=== PATIENT | female | born 1995 | race Native Hawaiian/Other Pacific Islander ===

== ENCOUNTER 2018-09-18 09:02 | Emergency (ER) | payer MEDICAID ==
[2018-09-18 09:09] VITALS: BP 110/78
[2018-09-18 09:26] LABS: Basophils % (Auto) 0.3 % (0.0-1.8); Eosinophils # (Auto) 0.1 K/mm3 (0.0-0.4); Eosinophils % (Auto) 1.1 % (0.0-4.3); Hematocrit 37.6 % (30.3-42.9); Hemoglobin 13.1 gm/dl (10.1-14.3); Lymphocytes # (Auto) 0.9 K/mm3 (1.2-5.4); Lymphocytes % (Auto) 17.7 % (13.4-35.0); Mean Corpuscular HGB Conc 35 % (30-34); Mean Corpuscular Volume 87 fl (79-97); Monocytes # (Auto) 0.4 K/mm3 (0.0-0.8); Monocytes % (Auto) 7.1 % (0.0-7.3); Platelet Count 185 K/mm3 (140-440); Red Cell Distribution Width 13.6 % (13.2-15.2)
[2018-09-18 09:47] LABS: Alanine Aminotransferase 60 units/L (7-56); Albumin 4.3 g/dL (3.9-5); BUN/Creatinine Ratio 20; Blood Urea Nitrogen 12 mg/dL (7-17); Calcium 8.9 mg/dL (8.4-10.2); Hemolysis Index 8
[2018-09-18 09:51] LABS: Bilirubin,Urine NEG (Negative); Blood,Urine MOD (Negative); Color,Urine Straw (Yellow); Urobilinogen,Urine < 2.0 mg/dL (<2.0)
--- NOTE | 2018-09-18 10:16 | Emergency Department Report ---
ED Abdominal Pain HPI - General Chief Complaint: Abdominal Pain Stated Complaint: ABD PAIN/1WK Time Seen by Provider: 09/18/18 09:51 Source: patient Mode of arrival: Ambulatory Limitations: No Limitations - History of Present Illness Initial Comments: This is a 23-year-old female presents ED complaining of upper abdominal pain with some nausea and vomiting intermittently for the past 4 months. Patient states that she had an appointment with the primary care physician who stated she needed a CT scan but has not been able to give her an appointment. Patient states nausea is intermittent. Patient states she is still able to eat and drink fluids without any problems. Patient denies any radiation of pain. She states it's localized to the upper mid abdominal region. MD Complaint: abdominal pain Severity scale (0 -10): 7 - Related Data Previous Rx's Medication Instructions Recorded Last Taken Type Famotidine [Pepcid] 40 mg PO QHS #30 tablet 09/18/18 Unknown Rx Ondansetron [Zofran Odt] 4 mg PO Q8HR #30 tab.rapdis 09/18/18 Unknown Rx Allergies Allergy/AdvReac Type Severity Reaction Status Date / Time No Known Allergies Allergy Verified 09/18/18 09:09 ED Review of Systems ROS: Stated complaint: ABD PAIN/1WK Other details as noted in HPI Comment: All other systems reviewed and negative ED Past Medical Hx - Past Medical History Previous Medical History?: No - Surgical History Past Surgical History?: Yes Additional Surgical History: gallstone removal - Social History Smoking Status: Never Smoker - Medications Home Medications: Home Medications Medication Instructions Recorded Confirmed Last Taken Type Famotidine [Pepcid] 40 mg PO QHS #30 tablet 09/18/18 Unknown Rx Ondansetron [Zofran Odt] 4 mg PO Q8HR #30 tab.rapdis 09/18/18 Unknown Rx ED Physical Exam - General Limitations: No Limitations General appearance: alert, in no apparent distress - Head Head exam: Present: atraumatic, normocephalic - Eye Eye exam: Present: normal appearance - ENT ENT exam: Present: mucous membranes moist - Neck Neck exam: Present: normal inspection - Respiratory Respiratory exam: Present: normal lung sounds bilaterally. Absent: respiratory distress - Cardiovascular Cardiovascular Exam: Present: regular rate, normal rhythm. Absent: systolic murmur, diastolic murmur, rubs, gallop - GI/Abdominal GI/Abdominal exam: Present: soft, normal bowel sounds. Absent: distended, tenderness, guarding, mass, pulsatile mass - Expanded GI/Abdominal Exam Expanded GI/Abdominal exam: Absent: psoas sign, obturator sign - Extremities Exam Extremities exam: Present: normal inspection - Back Exam Back exam: Present: normal inspection, full ROM, muscle spasm. Absent: CVA tenderness (R), CVA tenderness (L) - Neurological Exam Neurological exam: Present: alert, oriented X3, normal gait - Psychiatric Psychiatric exam: Present: normal affect, normal mood - Skin Skin exam: Present: warm, dry, intact, normal color. Absent: rash ED Course Vital Signs 09/18/18 09:07 Temperature 98.4 F Pulse Rate 990 H Respiratory 16 Rate Blood Pressure 110/78 O2 Sat by Pulse 98 Oximetry ED Medical Decision Making - Lab Data Result diagrams: 09/18/18 09:15 09/18/18 09:15 Laboratory Last Values WBC 5.0 K/mm3 (4.5-11.0) 09/18/18 09:15 RBC 4.30 M/mm3 (3.65-5.03) 09/18/18 09:15 Hgb 13.1 gm/dl (10.1-14.3) 09/18/18 09:15 Hct 37.6 % (30.3-42.9) 09/18/18 09:15 MCV 87 fl (79-97) 09/18/18 09:15 MCH 30 pg (28-32) 09/18/18 09:15 MCHC 35 % (30-34) H 09/18/18 09:15 RDW 13.6 % (13.2-15.2) 09/18/18 09:15 Plt Count 185 K/mm3 (140-440) 09/18/18 09:15 Lymph % (Auto) 17.7 % (13.4-35.0) 09/18/18 09:15 [place] % (Auto) 7.1 % (0.0-7.3) 09/18/18 09:15 Eos % (Auto) 1.1 % (0.0-4.3) 09/18/18 09:15 Baso % (Auto) 0.3 % (0.0-1.8) 09/18/18 09:15 Lymph # 0.9 K/mm3 (1.2-5.4) L 09/18/18 09:15 [place] # 0.4 K/mm3 (0.0-0.8) 09/18/18 09:15 Eos # 0.1 K/mm3 (0.0-0.4) 09/18/18 09:15 Baso # 0.0 K/mm3 (0.0-0.1) 09/18/18 09:15 Seg Neutrophils % 73.8 % (40.0-70.0) H 09/18/18 09:15 Seg Neutrophils # 3.7 K/mm3 (1.8-7.7) 09/18/18 09:15 Sodium 141 mmol/L (137-145) 09/18/18 09:15 Potassium 3.8 mmol/L (3.6-5.0) 09/18/18 09:15 Chloride 107.2 mmol/L (98-107) H 09/18/18 09:15 Carbon Dioxide 21 mmol/L (22-30) L 09/18/18 09:15 Anion Gap 17 mmol/L 09/18/18 09:15 BUN 12 mg/dL (7-17) 09/18/18 09:15 Creatinine 0.6 mg/dL (0.7-1.2) L 09/18/18 09:15 Estimated GFR > 60 ml/min 09/18/18 09:15 BUN/Creatinine Ratio 20 % 09/18/18 09:15 Glucose 105 mg/dL (65-100) H 09/18/18 09:15 Calcium 8.9 mg/dL (8.4-10.2) 09/18/18 09:15 Total Bilirubin 0.30 mg/dL (0.1-1.2) 09/18/18 09:15 AST 34 units/L (5-40) 09/18/18 09:15 ALT 60 units/L (7-56) H 09/18/18 09:15 Alkaline Phosphatase 91 units/L (35-129) 09/18/18 09:15 Total Protein 7.4 g/dL (6.3-8.2) 09/18/18 09:15 Albumin 4.3 g/dL (3.9-5) 09/18/18 09:15 Albumin/Globulin Ratio 1.4 % 09/18/18 09:15 HCG, Qual Negative (Negative) 09/18/18 09:15 Urine Color Straw (Yellow) 09/18/18 09:39 Urine Turbidity Clear (Clear) 09/18/18 09:39 Urine pH 6.0 (5.0-7.0) 09/18/18 09:39 Ur Specific [place] 1.005 (1.003-1.030) 09/18/18 09:39 Urine Protein 100 mg/dl mg/dL (Negative) 09/18/18 09:39 Urine Glucose (UA) Neg mg/dL (Negative) 09/18/18 09:39 Urine Ketones Neg mg/dL (Negative) 09/18/18 09:39 Urine Blood Mod (Negative) 09/18/18 09:39 Urine Nitrite Neg (Negative) 09/18/18 09:39 Urine Bilirubin Neg (Negative) 09/18/18 09:39 Urine Urobilinogen < 2.0 mg/dL (<2.0) 09/18/18 09:39 Ur Leukocyte Esterase Neg (Negative) 09/18/18 09:39 Urine WBC (Auto) 2.0 /HPF (0.0-6.0) 09/18/18 09:39 Urine RBC (Auto) 2.0 /HPF (0.0-6.0) 09/18/18 09:39 U Epithel Cells (Auto) < 1.0 /HPF (0-13.0) 09/18/18 09:39 - Radiology Data Radiology results: report reviewed, image reviewed No acute findings - Medical Decision Making 23-year-old female presents with abdominal pain 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 Discussed with patient CT scan is negative and shows no findings. His constipation to severe case of GERD. Vital signs normal she is in no acute distress there was no active vomiting in the ED. Critical care attestation.: If time is entered above; I have spent that time in minutes in the direct care of this critically ill patient, excluding procedure time. ED Disposition Clinical Impression: Abdominal pain Disposition: DC-01 TO HOME OR SELFCARE Is pt being admited?: No Does the pt Need Aspirin: No Condition: Stable Instructions: Abdominal Pain (ED), Gastroesophageal Reflux Disease (ED), Diet for Ulcers and Gastritis (ED) Additional Instructions: Make sure to follow up with the primary care physician as discussed. Take all your medications as you've been prescribed. If you have any worsening symptoms or develop new symptoms please return to ED immediately. Prescriptions: Famotidine [Pepcid] 40 mg PO QHS #30 tablet Ondansetron [Zofran Odt] 4 mg PO Q8HR #30 tab.rapdis Referrals: [facility] [Other] - 3-5 Days Forms: Accompanied Note, Work/School Release Form(ED) Time of Disposition: 12:40
--- NOTE | 2018-09-18 11:42 | Cat Scan Report ---
CT abdomen and pelvis without contrast: Upper abdominal pain. Transverse images are obtained from lower chest to the ischium with coronal and sagittal 2-D reformatted images. The visualized lung bases are clear. There is no gallbladder identified. The abdominal and retroperitoneal organs are otherwise unremarkable. The unopacified bowel and mesentery appear normal. The appendix is not identified. No evidence of inflammatory changes are noted. No free fluid and no abdominal mass. There is a fat containing small umbilical hernia. Images of the pelvis demonstrate reproductive organs with no mass and no free fluid. The bony structures are unremarkable. Impression: No pathology identified.
== END 2018-09-18 13:03 | disposition home or self-care (01) ==
LOC: ED 09:02
DX: R10.10 Upper abdominal pain, unspecified (principal); R11.2 Nausea with vomiting, unspecified
CPT/HCPCS: 36415; 74176; 80053; 81001; 84703; 85025

== ENCOUNTER 2020-11-17 00:14 | Emergency (ER) | payer MEDICAID ==
--- NOTE | 2020-11-17 01:52 | XRay Report ---
CHEST 2 VIEWS INDICATION / CLINICAL INFORMATION: Chest pain, SOB. COMPARISON: None available. FINDINGS: SUPPORT DEVICES: None. HEART / MEDIASTINUM: No significant abnormality. LUNGS / PLEURA: No significant pulmonary or pleural abnormality. No pneumothorax. ADDITIONAL FINDINGS: No significant additional findings. IMPRESSION: 1. No acute findings. Signer Name: Lila Berkowitz MD Signed: 11/17/2020 1:47 AM Workstation Name: [id number]
[2020-11-17 02:19] LABS: Basophils % (Auto) 0.4 % (0.0-1.8); Eosinophils # (Auto) 0.2 K/mm3 (0.0-0.4); Eosinophils % (Auto) 4.3 % (0.0-4.3); Hematocrit 31.4 % (30.3-42.9); Hemoglobin 10.5 gm/dl (10.1-14.3); Lymphocytes # (Auto) 2.1 K/mm3 (1.2-5.4); Lymphocytes % (Auto) 36.9 % (13.4-35.0); Mean Corpuscular HGB Conc 34 % (30-34); Mean Corpuscular Volume 77 fl (79-97); Monocytes # (Auto) 0.4 K/mm3 (0.0-0.8); Monocytes % (Auto) 6.4 % (0.0-7.3); Platelet Count 209 K/mm3 (140-440); Red Blood Count 4.09 M/mm3 (3.65-5.03)
[2020-11-17 02:38] LABS: Alanine Aminotransferase 14 units/L (7-56); Albumin 4.5 g/dL (3.9-5); Blood Urea Nitrogen 13 mg/dL (7-17); Calcium 9.2 mg/dL (8.4-10.2); Hemolysis Index 1
[2020-11-17 02:39] LABS: BUN/Creatinine Ratio 26
[2020-11-17] MEDS ORDERED: LIDOCAINE VISCOUS 2% 15 ML ORAL LIQD PO ONE (03:56)
[2020-11-17] MEDS ORDERED: ALUM-MAG HYDROXIDE-SIMETHICONE 200-200-20MG/5ML ORAL LIQD 30 ML PO ONE (03:56)
--- NOTE | 2020-11-17 03:59 | Emergency Department Report ---
ED General Adult HPI - General Chief complaint: Chest Pain Stated complaint: CHEST PAIN, MIGRAINE Time Seen by Provider: 11/17/20 03:46 Source: patient Mode of arrival: Ambulatory Limitations: No Limitations - History of Present Illness Initial comments: 25-year-old female, no past medical history, presents to ED with complaint of headache, chest pain, abdominal pain x1 week. Patient reports substernal sharp chest pain, intermittent. She denies any aggravating or alleviating factors. She denies any shortness of breath, cough, fever, leg pain or swelling. Patient states she has also been having some epigastric abdominal pain with associated nausea. She denies any vomiting or diarrhea. Patient also reports associated migraine headache. Patient states she has not been taking anything at home for the pain. Patient states she was seen in urgent care for the same complaint and was given a prescription for nausea medicine. -: week(s) (1) Location: head, chest, abdomen Severity scale (0 -10): 8 Quality: sharp Consistency: intermittent Improves with: none Worsens with: cold therapy Associated Symptoms: headaches, nausea/vomiting. denies: cough, fever/chills, shortness of breath - Related Data Previous Rx's Medication Instructions Recorded Last Taken Type Famotidine [Pepcid] 40 mg PO QHS #30 tablet 09/18/18 Unknown Rx Ondansetron [Zofran Odt] 4 mg PO Q8HR #30 tab.rapdis 09/18/18 Unknown Rx Dicyclomine [Bentyl] 20 mg PO QID PRN #20 tablet 11/17/20 Unknown Rx traMADoL [Ultram] 50 mg PO Q6HR PRN #7 tablet 11/17/20 Unknown Rx Allergies Allergy/AdvReac Type Severity Reaction Status Date / Time No Known Allergies Allergy Verified 09/18/18 09:09 ED Review of Systems ROS: Stated complaint: CHEST PAIN, MIGRAINE Other details as noted in HPI Comment: All other systems reviewed and negative Constitutional: denies: chills Respiratory: denies: cough, shortness of breath Cardiovascular: chest pain Gastrointestinal: abdominal pain, nausea. denies: vomiting, diarrhea Musculoskeletal: other (Denies leg pain or swelling) Neurological: headache ED Past Medical Hx - Past Medical History Previous Medical History?: Yes Hx Headaches / Migraines: Yes - Surgical History Past Surgical History?: Yes Additional Surgical History: gallstone removal - Social History Smoking Status: Never Smoker Substance Use Type: None - Medications Home Medications: Home Medications Medication Instructions Recorded Confirmed Last Taken Type Famotidine [Pepcid] 40 mg PO QHS #30 tablet 09/18/18 Unknown Rx Ondansetron [Zofran Odt] 4 mg PO Q8HR #30 tab.rapdis 09/18/18 Unknown Rx Dicyclomine [Bentyl] 20 mg PO QID PRN #20 tablet 11/17/20 Unknown Rx traMADoL [Ultram] 50 mg PO Q6HR PRN #7 tablet 11/17/20 Unknown Rx ED Physical Exam - General Limitations: No Limitations General appearance: alert, in no apparent distress - Head Head exam: Present: atraumatic, normocephalic - Eye Eye exam: Present: normal appearance, EOMI - ENT ENT exam: Present: mucous membranes moist - Neck Neck exam: Present: normal inspection - Respiratory Respiratory exam: Present: normal lung sounds bilaterally, chest wall tenderness. Absent: respiratory distress - Cardiovascular Cardiovascular Exam: Present: regular rate, normal rhythm - GI/Abdominal GI/Abdominal exam: Present: soft, tenderness (epigastric tenderness). Absent: distended - Extremities Exam Extremities exam: Present: normal inspection - Neurological Exam Neurological exam: Present: alert, oriented X3 - Psychiatric Psychiatric exam: Present: normal affect, normal mood - Skin Skin exam: Present: warm, dry, intact, normal color ED Course Vital Signs 11/17/20 11/17/20 01:07 04:08 Temperature 98.9 F Pulse Rate 74 Respiratory 16 16 Rate Blood Pressure 123/83 [Right] O2 Sat by Pulse 99 Oximetry ED Medical Decision Making - Lab Data Result diagrams: 11/17/20 01:48 11/17/20 01:48 - EKG Data -: EKG Interpreted by Ar EKG shows normal: sinus rhythm, axis, intervals, QRS complexes, ST-T waves Rate: normal - EKG Data Interpretation: no acute changes - Radiology Data Radiology results: report reviewed, image reviewed - Medical Decision Making 25-year-old female presents to ED with 1 week history of headache, chest pain, abdominal pain. Vital signs are normal and stable. EKG is normal, no ST changes present. Troponin is negative x2. Chest x-ray is normal. Patient is in no respiratory distress. Remainder of labs are unremarkable. Patient given a GI cocktail here in the ED. Patient will be discharged at this time with prescriptions. Outpatient follow-up advised, return precautions given. - Differential Diagnosis Atypical chest pain, pneumonia, headache, pancreatitis, GERD, Critical care attestation.: If time is entered above; I have spent that time in minutes in the direct care of this critically ill patient, excluding procedure time. ED Disposition Clinical Impression: Headache, Chest pain, Abdominal pain Disposition: TO HOME OR SELFCARE Is pt being admited?: No Condition: Stable Instructions: Nonspecific Chest Pain, Adult, Abdominal Pain, Adult, [id number] Prescriptions: Dicyclomine [Bentyl] 20 mg PO QID PRN #20 tablet PRN Reason: abdominal pain traMADoL [Ultram] 50 mg PO Q6HR PRN #7 tablet PRN Reason: Pain Referrals: PRIMARY CARE, [Primary Care Provider] - 3-5 Days [facility] [Provider Group] - 3-5 Days Time of Disposition: 05:20 HEART Score - HEART Score History: Slightly suspicious EKG: Normal Age: < 45 Risk factors: No known risk factors Troponin: Troponin T < 0.010 ng/mL (0.00-0.029) 11/17/20 04:07 Troponin: < normal limit HEART Score: 0
[2020-11-17 04:23] LABS: Bilirubin,Urine NEG (Negative); Blood,Urine NEG (Negative); Color,Urine Yellow (Yellow); Hyaline Casts,Urine 1 /LPF; Mucus,Urine FEW /HPF; Protein,Urine <15 mg/dL mg/dL (Negative); Urobilinogen,Urine < 2.0 mg/dL (<2.0)
[2020-11-17 04:40] LABS: HCG Qualitative,Urine Negative (Negative)
[2020-11-17 05:32] VITALS: BP 143/57
--- NOTE | 2020-11-27 10:26 | Electrocardiograph Report ---
[facility] Test Date: 2020-11-17 Test Time: 01:40:19 Pat Name: JANEL NITESH Department: Room: Gender: F Warp Spooler: ESTRADA : 1995 Requested By: FLEX HOLMAN Order Number: [id number] Reading MD: Anthony Gupta Measurements Intervals [place] Rate: 80 P: 63 LA: 147 QRS: 26 QRSD: 91 T: 51 QT: 390 QTc: 450 Interpretive Statements Sinus rhythm No previous ECG available for comparison Electronically Signed On 11-27-2020 10:26:38 EDT by Anthony Gupta
== END 2020-11-17 05:51 | disposition home or self-care (01) ==
LOC: ED 00:14
DX: R07.89 Other chest pain (principal); R51.9 Headache, unspecified; R10.9 Unspecified abdominal pain; Z98.890 Other specified postprocedural states; Z79.899 Other long term (current) drug therapy
CPT/HCPCS: 36415; 71046; 80053; 81001; 81025; 83690; 84484; 85025; 93005